=== PATIENT | female | born 1980 | race Caucasian/White ===

== ENCOUNTER 2019-08-16 07:15 | Emergency (ER) | payer MEDICAID, OTHER ==
[~2019-08-16] VITALS: Ht 170.2 cm; Wt 80.7 kg
[2019-08-16 07:19] VITALS: BP 111/69
[2019-08-16] MEDS ORDERED: KETOROLAC 30 MG/1 ML ONE (07:33)
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
[2019-08-16] MEDS ORDERED: KETOROLAC 30 MG/1 ML IM ONE (08:00)
== END 2019-08-16 08:31 | disposition home or self-care (01) ==
LOC: ED 08:07
DX: G89.11 Acute pain due to trauma (principal); M25.512 Pain in left shoulder; F17.210 Nicotine dependence, cigarettes, uncomplicated
CPT/HCPCS: 73030; 96372; 99283; J1885